=== PATIENT | male | born 1960 | race Caucasian/White ===

== ENCOUNTER → 2017-01-21 | Outpatient (CLI) | payer OTHER ==
[2014-11-30 06:54] VITALS: BP 125/69
[~2017-01-21] MED LIST: ALPR1TAB10 PO; ALPR1TAB2 PO; AMLO10TA2 PO; CETI10CA PO; DAYQUIL PO; FAMO-63 PO; FAMO1TAB22 PO; HYDR-2762 PO; HYDR-963 PO; HYDR12.58 PO; IOHEXOL 300 MG/ML 100ML VIAL. IV ONE; LISI-338 PO; LISI10TA2 PO; LOSA1TAB25 PO; MELO15TA23 PO; MULT1TAB52 PO; NYQUIL PO; OXYC-327 PO; PRAV10TA2 PO; PRAV20TA PO; PRAV40TA2 PO; TEST200V3 IM; WARF4TAB7 PO
--- NOTE | 2017-01-21 12:17 | KCIC ---
PQRS Compliance Statement: One or more of the following individualized dose reduction techniques were utilized for this examination: 1. Automated exposure control 2. Adjustment of the mA and/or kV according to patient size 3. Use of iterative reconstruction technique ABDOMEN CT WITH AND WITHOUT CONTRAST: 01/21/2017 12:00 PM Indication: 56 years old Male. Intermittent microscopic hematuria. Right renal cysts. Comparison Studies: None. Technique: Multiple axial images of the abdomen were obtained before and following the intravenous administration of 100 cc Omnipaque 300 per renal mass protocol. Two-dimensional coronal and sagittal reconstructions were obtained. Findings: LUNG BASES: Unremarkable. ABDOMEN: LIVER: Within normal limits BILE DUCTS: Normal caliber. GALLBLADDER: No calcified gallstones. PANCREAS: Within normal limits. SPLEEN: Within normal limits. ADRENAL GLANDS: Within normal limits. KIDNEYS: Previously seen 1.3 cm cyst in the midpole the right kidney measures 0.8 cm. No suspicious renal masses are identified. The kidneys enhance symmetrically. No filling defects are identified within the renal collecting systems and opacified proximal ureters. No renal calculi are identified. There is no hydronephrosis. BOWEL: Nondilated without adjacent inflammatory changes. PERITONEUM: No ascites or free air. No fluid collection. VASCULATURE: No abdominal aortic aneurysm. RETROPERITONEUM: Within normal limits. ABDOMINAL WALL: Within normal limits. LYMPH NODES: No lymphadenopathy in the abdomen. BONES: Mild degenerative disc disease is identified involving the visualized thoracolumbar spine. Schmorl's nodes are identified inferior involving the inferior endplate of L2 and superior and inferior endplates of L3 and L4. IMPRESSION: 1. Previously seen 1.3 cm cyst in the midpole the right kidney currently measures 0.8 cm (Bosniak 1). No suspicious renal masses are identified. 2. No renal calculi or hydronephrosis. Electronically signed by: Monica Sena MD (01/21/2017 12:14 PM) [place] [id number]
--- NOTE | 2017-01-21 13:41 | KCIC ---
MRI right knee without contrast dated 01/21/2017 12:30 PM Indication: Knee pain burning , no known injury, pain since October Comparison: No comparison is available. Technique: Routine multiplanar multisequence imaging performed. . Findings: Moderate tricompartmental hypertrophic change with prominent marginal osteophytes. Thinning and surface irregularity of the articular cartilage throughout. Full-thickness cartilage loss of the lateral aspect of the medial femoral condyle. Full-thickness cartilage loss at the weightbearing surface of lateral femoral condyle. Full-thickness cartilage fissuring at the lateral patellar facet and lateral femoral trochlea. Small joint effusion. No intra-articular loose body. No significant popliteal cyst. Anterior cruciate and posterior cruciate ligaments are intact. Medial and lateral collateral complexes are intact. Iliotibial band, popliteus tendon and pes anserine complex within normal limits. Quadriceps and patellar tendon are intact. Mild increased signal within the substance of the proximal patellar tendon. No abnormality of the medial or lateral retinaculum. There is a focal free edge radial tear at the medial meniscal body with linear signal extending to the tibial articular surface. The anterior horn and posterior horn are intact. Blunted morphology of the anterior horn, posterior horn and body of lateral meniscus. There is some linear signal at the anterior horn with perimeniscal cystic changes. IMPRESSION: 1. Moderate tricompartmental degenerative arthrosis and chondromalacia. There is full-thickness cartilage loss in all 3 knee compartments. 2. Complex tear medial meniscal body. 3. Free edge degenerative radial tearing throughout the lateral meniscus. There is also a horizontal cleavage component at the anterior horn. 4. Small joint effusion. Electronically signed by: Abdulaziz Guevara MD (01/21/2017 1:38 PM) [id number]
== END | disposition home or self-care (01) ==
LOC: KCIC CT 10:44
PROVIDERS: ATTEND Family Medicine
DX: S83.281A Other tear of lateral meniscus, current injury, right knee, initial encounter (principal); N28.1 Cyst of kidney, acquired; M51.35 Other intervertebral disc degeneration, thoracolumbar region; M51.46 Schmorl's nodes, lumbar region; M94.261 Chondromalacia, right knee; X58.XXXA Exposure to other specified factors, initial encounter; Y93.89 Activity, other specified; Y92.89 Other specified places as the place of occurrence of the external cause; Y99.8 Other external cause status
CPT/HCPCS: 73721; 74170; Q9967

== ENCOUNTER → 2017-04-16 | Outpatient (CLI) | payer OTHER | END | disposition home or self-care (01) | LOC: KCIC MRI 07:48 | DX: M51.37 Other intervertebral disc degeneration, lumbosacral region (principal); M54.16 Radiculopathy, lumbar region; M25.78 Osteophyte, vertebrae; M25.551 Pain in right hip | CPT/HCPCS: 72148 ==

== ENCOUNTER → 2017-04-28 | Outpatient (CLI) | payer OTHER | END | disposition home or self-care (01) | LOC: PNCL 07:42 | DX: M51.36 Other intervertebral disc degeneration, lumbar region (principal); I10 Essential (primary) hypertension; Z87.891 Personal history of nicotine dependence | CPT/HCPCS: 99214 ==

== ENCOUNTER → 2017-05-12 | Outpatient (CLI) | payer OTHER ==
[~2017-05-12] MED LIST changes: -ALPR1TAB10 PO; -ALPR1TAB2 PO; -AMLO10TA2 PO; -CETI10CA PO; -DAYQUIL PO; -FAMO-63 PO; -FAMO1TAB22 PO; -HYDR-2762 PO; -HYDR-963 PO; -HYDR12.58 PO; +IOHEXOL 180 MG/ML 10 ML VIAL.; -IOHEXOL 300 MG/ML 100ML VIAL. IV ONE; -LISI-338 PO; -LISI10TA2 PO; -LOSA1TAB25 PO; -MELO15TA23 PO; -MULT1TAB52 PO; -NYQUIL PO; -OXYC-327 PO; -PRAV10TA2 PO; -PRAV20TA PO; -PRAV40TA2 PO; -TEST200V3 IM; -WARF4TAB7 PO; +methylPREDNISolone ACETATE 40 MG/ML VIAL.; +methylPREDNISolone ACETATE 80 MG/ML VIAL.
== END | disposition home or self-care (01) ==
LOC: PNCL 08:18
DX: M51.16 Intervertebral disc disorders with radiculopathy, lumbar region (principal); E78.00 Pure hypercholesterolemia, unspecified; K21.9 Gastro-esophageal reflux disease without esophagitis; M19.90 Unspecified osteoarthritis, unspecified site; F17.200 Nicotine dependence, unspecified, uncomplicated; Z72.89 Other problems related to lifestyle; Z86.69 Personal history of other diseases of the nervous system and sense organs; Z98.890 Other specified postprocedural states; Z87.39 Personal history of other diseases of the musculoskeletal system and connective tissue; Z96.652 Presence of left artificial knee joint
CPT/HCPCS: 62323; J1030; J1040; Q9965

== ENCOUNTER → 2017-06-24 | Outpatient (CLI) | payer OTHER | END | disposition home or self-care (01) | LOC: PNCL 08:59 | DX: M51.16 Intervertebral disc disorders with radiculopathy, lumbar region (principal); I10 Essential (primary) hypertension; E78.00 Pure hypercholesterolemia, unspecified; G47.33 Obstructive sleep apnea (adult) (pediatric); M19.90 Unspecified osteoarthritis, unspecified site; Z98.890 Other specified postprocedural states; Z88.8 Allergy status to other drugs, medicaments and biological substances; Z79.899 Other long term (current) drug therapy | CPT/HCPCS: 99212 ==

== ENCOUNTER → 2017-07-08 | Outpatient (CLI) | payer OTHER | END | disposition home or self-care (01) | LOC: PNCL 08:54 | DX: M51.16 Intervertebral disc disorders with radiculopathy, lumbar region (principal); G89.29 Other chronic pain; I10 Essential (primary) hypertension; E78.00 Pure hypercholesterolemia, unspecified; M19.90 Unspecified osteoarthritis, unspecified site; G47.33 Obstructive sleep apnea (adult) (pediatric); F17.210 Nicotine dependence, cigarettes, uncomplicated; Z90.49 Acquired absence of other specified parts of digestive tract; Z98.890 Other specified postprocedural states; Z88.8 Allergy status to other drugs, medicaments and biological substances; Z79.899 Other long term (current) drug therapy | CPT/HCPCS: 62323; J1030; J1040; Q9965 ==

== ENCOUNTER → 2017-07-23 | Outpatient (CLI) | payer OTHER | END | disposition home or self-care (01) | LOC: PNCL 09:29 | DX: M51.16 Intervertebral disc disorders with radiculopathy, lumbar region (principal) | CPT/HCPCS: 99212 ==

== ENCOUNTER → 2017-08-06 | Outpatient (CLI) | payer OTHER | LOC: PNCL 08:57 | DX: M51.16 Intervertebral disc disorders with radiculopathy, lumbar region (principal) | CPT/HCPCS: 62323; J1030; J1040; Q9965 ==